=== PATIENT | male | born 1985 | race Caucasian/White ===

== ENCOUNTER 2021-07-10 08:42 | Outpatient (RCR) | payer OTHER ==
[~2021-07-10 08:42] MED LIST: LORTAB 5/500 501 TAB PO; NO HOME MEDICATIONS
== END 2021-07-22 | disposition home or self-care (01) ==
LOC: WSOH
DX: S43.402D Unspecified sprain of left shoulder joint, subsequent encounter (principal); Y99.0 Civilian activity done for income or pay; Z98.890 Other specified postprocedural states; F17.210 Nicotine dependence, cigarettes, uncomplicated; Z79.899 Other long term (current) drug therapy

== ENCOUNTER 2021-08-03 14:49 | Outpatient (RCR) | payer OTHER | END 2021-08-22 | disposition home or self-care (01) | LOC: WSOH | DX: S43.432D Superior glenoid labrum lesion of left shoulder, subsequent encounter (principal); Z98.890 Other specified postprocedural states; Y99.0 Civilian activity done for income or pay ==